=== PATIENT | male | born 1985 | race African-American/Black ===

== ENCOUNTER 2022-05-24 17:03 | Emergency (ER) | payer MEDICAID, OTHER ==
[~2022-05-24] VITALS: Ht 185.4 cm; Wt 86.2 kg
[2022-05-24 17:28] VITALS: BP 123/93
== END 2022-05-24 20:07 | disposition left against medical advice (07) ==
LOC: ER 17:03
DX: S01.511A Laceration without foreign body of lip, initial encounter (principal); Z53.21 Procedure and treatment not carried out due to patient leaving prior to being seen by health care provider; Y08.89XA Assault by other specified means, initial encounter; Y93.89 Activity, other specified; Y92.89 Other specified places as the place of occurrence of the external cause; Y99.8 Other external cause status